=== PATIENT | female | born 1955 | race African-American/Black ===

== ENCOUNTER 2018-02-22 18:07 | Emergency (ER) | payer OTHER, MEDICARE ==
[2018-02-22] MEDS: NAPROXEN 500 MG TABLET PO (19:11)
== END 2018-02-22 20:00 | disposition home or self-care (01) ==
LOC: ER 18:07
DX: S76.311A Strain of muscle, fascia and tendon of the posterior muscle group at thigh level, right thigh, initial encounter (principal); K21.9 Gastro-esophageal reflux disease without esophagitis; E78.00 Pure hypercholesterolemia, unspecified; I10 Essential (primary) hypertension; Z90.710 Acquired absence of both cervix and uterus; Z91.041 Radiographic dye allergy status; W10.9XXA Fall (on) (from) unspecified stairs and steps, initial encounter; Y93.89 Activity, other specified; Y92.89 Other specified places as the place of occurrence of the external cause; Y99.8 Other external cause status
CPT/HCPCS: 73552; 73562; 99284

== ENCOUNTER → 2020-12-03 | Outpatient (CLI) | payer OTHER ==
[2018-02-22 20:00] VITALS: BP 176/88
--- NOTE | 2020-12-03 15:41 | KCIC ---
ADDENDUM #1 Addendum: A prior study performed 07/07/2016 is now available for comparison. The aforementioned areas of nodularity are stable in appearance. The stability and imaging appearance favors benign intramamm dontrell and axillary tail lymph nodes. BI-RADS Category 2: Benign finding(s). Annual mammography is recommended. Electronically signed by: Cortney Bryant MD (12/04/2020 12:18 PM) [id number] ORIGINAL REPORT EXAM: Bilateral screening mammogram. HISTORY: 65-year-old female presents for screening mammography. TECHNIQUE: Full-field digital craniocaudal and mediolateral oblique views of both breasts are obtaine d for evaluation. Computer aided detection was applied. COMPARISON: None. BREAST PARENCHYMAL DENSITY: Level B - Scattered fibroglandular densities. FINDINGS: There are circumscribed nodules within the bilateral upper outer quadrants, the appearance of which favors intramammary lymph nodes. There is no suspicious calcification or architectural disto rtion within either breast. IMPRESSION: BI-RADS Category 0: Incomplete. Additional imaging needed. RECOMMENDATION: Further reduction with a bilateral breast sonogram is recommended to assess suspected intramedullary lymph nodes within the upper outer quadrants, given the absence of prior studies to c onfirm stability. If your mammogram demonstrates that you have dense breast tissue, which could hide abnormalities, and if you have other risk factors for breast cancer that have been identified, you might benefit from s upplemental screening tests that may be suggested by your ordering physician. Dense breast tissue, i n and of itself, is a relatively common condition. This information is not provided to cause undue c oncern, but rather to raise your awareness and to promote discussion with your physician regarding th e presence of other risk factors, in addition to dense breast tissue. A report of your mammography re sults will be sent to you and your physician. You should contact your physician if you have any ques tions or concerns regarding this report. Mammography is a sensitive method for finding small breast cancers, but it does not detect them all a nd is not a substitute for careful clinical examination. A negative mammogram does not negate a clin ically suspicious finding and should not result in delay in biopsying a clinically suspicious abnorma lity. PQRS compliance statement - Patient information was entered into a reminder system with a target due date for the next mammogram. "Our facility is accredited by the [employer] Mammography Program." Electronically signed by: Cortney Bryant MD (12/03/2020 3:39 PM) [email or web address]
== END ==
LOC: KCIC MAMMO 15:02
PROVIDERS: ATTEND Family Medicine
DX: Z12.31 Encounter for screening mammogram for malignant neoplasm of breast (principal)
CPT/HCPCS: 77067

== ENCOUNTER → 2021-09-17 | Outpatient (CLI) | payer OTHER ==
[2018-02-22 20:00] VITALS: BP 176/88
--- NOTE | 2021-09-17 16:36 | KCIC ---
INDICATION: Screening for osteopenia/osteoporosis. Reason: MENOPAUSAL AND POST MENOPAUSAL DISORDER / Spl. Instructions: / History: COMPARISON: None. TECHNIQUE: Bone densitometry was performed through the lumbar spine and proximal femur. IMPRESSION: Lumbar Spine: BMD: 1.23 T-Score: 1.6 Range: Normal Proximal Femur: BMD: 0.96 T-Score: 0.1 Range: Normal World Health Organization Criteria for Bone Density: T-Score: > -1.0: Normal Range < -1.0 to -2.5: Osteopenic Range < -2.5: Osteoporotic Range Electronically signed by: Chetan Acuna MD (09/17/2021 4:34 PM) [id number]
== END ==
LOC: KCIC DEXA 15:02
PROVIDERS: ATTEND Family Medicine
DX: Z13.820 Encounter for screening for osteoporosis (principal); N95.8 Other specified menopausal and perimenopausal disorders
CPT/HCPCS: 77080